=== PATIENT | female | born 1990 | race Caucasian/White ===

== ENCOUNTER 2017-05-23 08:34 | Emergency (ER) | payer MEDICAID ==
[~2017-05-23] VITALS: Wt 68.2 kg
[2017-05-23] MEDS ORDERED: ACETAMINOPHEN 500 MG TAB PO STA (09:21)
--- NOTE | 2017-05-23 09:24 | ERD ---
ER Documentation Chief Complaint Date/Time DATE: 05/23/17 TIME: 09:23 Chief Complaint vag bleed - clots, unk preg HPI This 27-year-old female presents emergency department today complaining of some vaginal bleeding for the past 3 days and a clot today. Patient states she is sexually active however take oral contraceptive pills however states that she has never really had regular periods. States she is unsure if she is . States that she last saw her DATABASE SECURITY ADMINISTRATOR 1 month ago. States she does have some pelvic tenderness and dysuria. Denies any fevers or chills, nausea or vomiting. ROS All systems reviewed and are negative except as per history of present illness. Medications Home Meds Active Scripts Naproxen* (Naprosyn*) 500 Mg Tablet, 500 MG PO BID Y for PAIN AND/OR INFLAMMATION, #30 TAB Prov:GIGI MURO PA-C 05/23/17 Allergies Allergies: Uncoded Allergies: NKA (Allergy, Unknown, 02/19/13) Physical Exam Vitals Vital Signs Date Time Temp Pulse Resp B/P Pulse Ox O2 Delivery O2 Flow Rate FiO2 05/23/17 12:35 98.6 71 16 128/79 99 Room Air 05/23/17 08:39 98.0 65 20 139/87 99 Physical Exam Const: No acute distress Head: Atraumatic Eyes: Normal Conjunctiva ENT: Normal External Ears, Nose and Mouth. Neck: Full range of motion..~ No meningismus. Resp: Clear to auscultation bilaterally Cardio: Regular rate and rhythm, no murmurs Abd: Soft, mild pelvic tenderness non distended. Normal bowel sounds. No tenderness [place] Skin: No petechiae or rashes Back: No midline or flank tenderness Ext: No cyanosis, or edema Neur: Awake and alert Psych: Normal Mood and Affect Result Diagram: 05/23/1725 05/23/17 09 Results 24 hrs Laboratory Tests Test 05/23/17 09:25 05/23/17 10:00 White Blood Count 5.010^3/ul Red Blood Count 4.8710^6/ul Hemoglobin 14.4g/dl Hematocrit 43.9% Mean Corpuscular Volume 90.1fl Mean Corpuscular Hemoglobin 29.6pg Mean Corpuscular Hemoglobin Concent 32.8g/dl Red Cell Distribution Width 13.0% Platelet Count 95321^3/UL Mean Platelet Volume 10.4fl Neutrophils % 52.9% Lymphocytes % 36.6% Monocytes % 8.5% Eosinophils % 1.2% Basophils % 0.4% Nucleated Red Blood Cells % 0.0/100WBC Neutrophils # (Manual) 310^3/ul Lymphocytes # 1.810^3/ul Monocytes # 0.410^3/ul Eosinophils # 0.110^3/ul Basophils # 0.010^3/ul Nucleated Red Blood Cells # 0.010^3/ul Sodium Level 139mmol/L Potassium Level 4.0mmol/L Chloride Level 102mmol/L Carbon Dioxide Level 27mmol/L Anion Gap 14 Blood Urea Nitrogen 10mg/dl Creatinine 0.65mg/dl Glucose Level 85mg/dl Calcium Level 9.3mg/dl Total Bilirubin 0.4mg/dl Direct Bilirubin 0.00mg/dl Indirect Bilirubin 0.4mg/dl Aspartate Amino Transf (AST/SGOT) 24IU/L Alanine Aminotransferase (ALT/SGPT) 43IU/L Alkaline Phosphatase 124IU/L Total Protein 8.5g/dl Albumin 4.5g/dl Globulin 4.00g/dl Albumin/Globulin Ratio 1.12 Urine Color RED Urine Clarity CLOUDY Urine pH 6.0 Urine Specific [place] 1.021 Urine Ketones NEGATIVEmg/dL Urine Nitrite NEGATIVEmg/dL Urine Bilirubin NEGATIVEmg/dL Urine Urobilinogen NEGATIVEmg/dL Urine Leukocyte Esterase NEGATIVELeu/ul Urine Microscopic RBC > 182/HPF Urine Microscopic WBC 21/HPF Urine Squamous Epithelial Cells MANY/HPF Urine Mucus MODERATE/HPF Urine Hemoglobin 3+mg/dL Urine Glucose NEGATIVEmg/dL Urine Total Protein 2+mg/dl Current Medications Medications (Trade) Dose Ordered Sig/Belol Route PRN Reason Start Time Stop Time Status Last Admin Dose Admin Acetaminophen (Tylenol Tab) 500 mg ONCE STAT PO 05/23/17 09:21 05/23/17 09:23 DC 05/23/17 09:49 DIAGNOSTIC IMAGING REPORT Patient: GÉNESIS GONZALEZ : 1990 Age: 27 Sex: F MR #: [id number] DOS: 05/23/17 0000 Ordering MD: GIGI MURO PA-C Location: [facility] Room/Bed: PROCEDURE: US Pelvis CLINICAL INDICATION: Vaginal bleeding TECHNIQUE: Multiple sonographic images of the pelvis were obtained utilizing a transabdominal and endovaginal technique. The images were reviewed on a PACS workstation. COMPARISON: None. LMP: 05/20/2017 FINDINGS: The uterus measures 8.0 x 4.0 x 5.0 cm. The endometrial echo complex measures 2 mm in thickness. No discrete lesion is seen. The right ovary measures 2.9 x 1.3 x 2.1 cm. The left ovary measures 3.4 x 1.5 x 2.0 cm. There is normal vascular flow in both ovaries. No significant ovarian lesions are seen. No significant pelvic free fluid is identified. IMPRESSION: Unremarkable pelvic ultrasound, as above. RPTAT: EE Vasiliy Soto Physician Date Time Electronically viewed and signed by Vasiliy Soto Physician on 05/23/2017 10:49 RA/ CC: GIGI MURO PA-C Procedures/MDM This 27-year-old female who presents the emergency department today complaining of some vaginal bleeding for the past 3 days. Patient reported passing a clot today. States she is unsure if she is . Given this I did obtain a urine test Laboratory workup shows no elevated white blood cell count. She is not anemic. Platelets are within normal limits. Electrolytes are within normal limits. Glucose within normal limits. Liver enzymes are within normal limits. Urine test is negative UA is negative for infection. There is a significant amount of blood. Ultrasound is unremarkable. There is no significant pelvic free fluid. There is normal vascular flow in both ovaries. There are no significant ovarian lesion seen. Low suspicion for acute surgical abdomen, ectopic , tubo-ovarian abscess or ovarian torsion. Patient was given Tylenol here in the emergency department. Patient was given a prescription for Naprosyn for home. Patient symptoms at this time is consistent with dysfunctional uterine bleeding. I explained to the patient that she needs to follow-up with her primary care doctor or [employer] SECURITY ADMINISTRATOR specialist. At this time the patient is stable for discharge and outpatient management. Patient should follow up with their PCP in the next 1-2 days. They may return to the emergency department sooner for any persistent or worsening of symptoms. Patient understood and agreed with the plan. Departure Diagnosis: Primary Impression: Vaginal bleeding Condition: GIGI Avila PA-C May 23, 2017 09:24
--- NOTE | 2017-05-23 10:49 | RADRPT ---
PROCEDURE: US Pelvis CLINICAL INDICATION: Vaginal bleeding TECHNIQUE: Multiple sonographic images of the pelvis were obtained utilizing a transabdominal and endovaginal technique. The images were reviewed on a PACS workstation. COMPARISON: None. LMP: 05/20/2017 FINDINGS: The uterus measures 8.0 x 4.0 x 5.0 cm. The endometrial echo complex measures 2 mm in thickness. N o discrete lesion is seen. The right ovary measures 2.9 x 1.3 x 2.1 cm. The left ovary measures 3.4 x 1.5 x 2.0 cm. There is no rmal vascular flow in both ovaries. No significant ovarian lesions are seen. No significant pelvic free fluid is identified. IMPRESSION: Unremarkable pelvic ultrasound, as above. RPTAT: EE Physician Desiree Date Time Electronically viewed and signed by Physician Desiree on 05/23/2017 10:49 /
[2017-05-23 11:16] LABS: ALBUMIN 4.5 g/dl (3.3-4.9); ALBUMIN/GLOBULIN RATIO 1.12; BILIRUBIN,INDIRECT 0.4 mg/dl (0-1.1); BILIRUBIN,TOTAL 0.4 mg/dl (0.2-1.3); CALCIUM 9.3 mg/dl (8.4-10.2); CREATININE 0.65 mg/dl (0.44-1.00); TOTAL PROTEIN 8.5 g/dl (6.1-8.1)
[2017-05-23 11:22] LABS: ADD UMIC YES; UR ASCORBIC ACID NEGATIVE (NEGATIVE); UR BILIRUBIN (Dip) NEGATIVE (NEGATIVE); UR BLOOD (Dip) 3+ mg/dL (NEGATIVE); UR CLARITY CLOUDY (CLEAR); UR COLOR RED (YELLOW); UR GLUCOSE (Dip) NEGATIVE (NEGATIVE); UR KETONES (Dip) NEGATIVE (NEGATIVE); UR LEUKOCYTE ESTERASE (Dip) NEGATIVE Leu/ul (NEGATIVE); UR MUCUS MODERATE /HPF (NONE SEEN); UR NITRITE (Dip) NEGATIVE (NEGATIVE); UR RBC > 182 /HPF (0-5); UR SPECIFIC GRAVITY (Dip) 1.021 (1.003-1.030); UR SQUAMOUS EPITHELIAL CELL MANY /HPF (FEW); UR TOTAL PROTEIN (Dip) 2+ mg/dl (NEGATIVE); UR UROBILINOGEN (Dip) NEGATIVE (NEGATIVE)
[2017-05-23 12:08] LABS: BASOPHILS % 0.4 % (0.0-2.0); EOSINOPHILS # 0.1 10^3/ul (0.0-0.5); EOSINOPHILS % 1.2 % (0.0-7.0); HEMATOCRIT 43.9 % (37.0-47.0); HEMOGLOBIN 14.4 g/dl (12.0-16.0); LYMPHOCYTES # 1.8 10^3/ul (0.8-2.9); LYMPHOCYTES % 36.6 % (15.0-51.0); MEAN CORPUSCULAR HEMOGLOBIN 29.6 pg (29.0-33.0); MEAN CORPUSCULAR HGB CONC 32.8 g/dl (32.0-37.0); MEAN CORPUSCULAR VOLUME 90.1 fl (82.0-101.0); MEAN PLATELET VOLUME 10.4 fl (7.4-10.4); MONOCYTE # 0.4 10^3/ul (0.3-0.9); MONOCYTES % 8.5 % (0.0-11.0); NEUTROPHILS % 52.9 % (39.0-77.0); PLATELET COUNT 322 10^3/UL (140-415); RED BLOOD COUNT 4.87 10^6/ul (4.20-5.40)
[2017-05-23] MEDS ORDERED: NAPR-260 PO (12:20)
[2017-05-23 12:35] VITALS: BP 128/79; PULSE 71; RESP 16; TEMP 98.6
== END 2017-05-23 12:36 | disposition home or self-care (01) ==
LOC: FTE 08:34
DX: N93.9 Abnormal uterine and vaginal bleeding, unspecified (principal); R10.2 Pelvic and perineal pain
CPT/HCPCS: 76830; 76856; 80053; 81001; 85025; Z7502; Z7610

== ENCOUNTER 2018-06-24 09:53 | Emergency (ER) | END 2018-06-24 13:40 | disposition home or self-care (01) ==